=== PATIENT | female | born 1990 | race Caucasian/White ===

== ENCOUNTER → 2017-05-26 13:45 | Observation (INO) ==
--- NOTE | 2017-05-26 12:23 | OB/GYN Progress Note ---
Date of Encounter: 05/26/17 Time of Encounter: 12:20 - Assessment and Plan (1) Irregular uterine contractions Current Visit: Yes Status: Acute Plans: - reactive NST - irregular contractions - serial cervical exams unchanged - Pt safe for discharge home, with labor precautions, when to return to triage or call provider. Pt verbalizes understanding. (2) 39 weeks gestation of Current Visit: Yes Status: Acute Subjective - Subjective Principal diagnosis: contractions Interval history: Marielena is a 26 y/o female at 39+2 weeks presented to L&D for cramping with concern for contractions about every 10 minutes. Patient admits to pink discharge but denies vaginal bleeding. Reports active movement. Denies DAY , N/V, dysuria, fevers, chills. is complicated by MTHFR and is on aspirin. Patient follows with the midwives. Antepartum ROS: movement normal, contractions, no loss of fluid, no vaginal bleeding Objective - Exam FHR: category 1 FHR comments: FHR baseline= 135, accelerations present. Auscultation: bilateral: normal Abdomen: Present: normal appearance, soft Uterus: Present: normal Cervical dilation: 3-4cm
[2017-05-26 12:52] LABS: Bilirubin,Urine Negative (Negative); Blood,Urine Negative (Negative); Clarity,Urine Clear (Clear); Color,Urine Yellow (Yellow); Glucose,Urine (UA) Normal (Normal); Ketones,Urine Negative (Negative); Leukocyte Esterase,Urine Negative (Negative); Nitrite,Urine Negative (Negative); PH,Urine 7.5 pH Units (5.0-8.0); Protein,Urine Negative (Neg-Trace); Specific Gravity,Urine 1.013 (1.010-1.025); Urobilinogen,Urine Normal (Normal)
[2017-05-26 13:04] LABS: Amphetamine Screen,Urine Negative ng/mL (Cutoff=1000); Barbiturate Screen,Urine Negative ng/mL (Cutoff=200); Benzodiazepines Screen,Urine Negative ng/mL (Cutoff=200); Cannabinoid Screen,Urine Negative ng/mL (Cutoff = 50); Cocaine Screen,Urine Negative ng/mL (Cutoff= 300); Opiate Screen,Urine Negative ng/mL (Cutoff=300); Phencyclidine Screen,Urine Negative ng/mL (Cutoff=25)
== END | disposition home or self-care (01) ==
LOC: 1NENULAB
PROVIDERS: ADMIT Advanced Practice Midwife; ATTEND Advanced Practice Midwife

== ENCOUNTER 2017-05-27 03:48 | Inpatient (IN) ==
[~2017-05-27 03:48] MED LIST: *HR* Nalbuphine 20 MG/ML AMPUL IVP PRN; Famotidine 20 MG/2 ML VIAL IVP PRN; Naloxone 0.4 MG/ML INJ IVP PRN; Ondansetron 4 MG/2 ML VIAL IVP PRN
[2017-05-27] MEDS ORDERED: Ringers Solution, Lactated 1,000 ML IVC SCH (04:00)
--- NOTE | 2017-05-27 04:19 | OB/GYN History & Physical ---
Date of Encounter: 05/27/17 Time of Encounter: 04:07 Assessment and Plan (1) MTHFR deficiency complicating Current visit: Yes Status: Acute Qualifiers: Trimester: third trimester Qualified Code(s): O99.283 - Endocrine, nutritional and metabolic diseases complicating , third trimester; E72.12 - Methylenetetrahydrofolate reductase deficiency; E72.12 - Methylenetetrahydrofolate reductase deficiency; E72.12 - Methylenetetrahydrofolate reductase deficiency; E72.12 - Methylenetetrahydrofolate reductase deficiency (2) Uterine contractions Current visit: Yes Status: Acute IUP at 39+3 weeks GA Active labor GBS negative intact membranes Fetus Category I MTHFR gene mutation - on ASA Plan: Admit to L&D IV bolus then OK for saline lock Routine labs VS per standard Nubain or epidural as needed for pain relief 1000ml LR bolus Anesthesia consult PRN for epidural Anticipate POC per consult with Dr. Banda (3) 39 weeks gestation of Current visit: Yes Status: Acute History of Present Illness Chief complaint: Contractions HPI: Ms. Sands is a 26 year old at 39+3 weeks gestation by LMP. EDB 05/31/17. She returns to L&D because contractions have gotten closer together and are more intense. Her reports contractions every 5 minutes for 2 hours prior to arrival. Her has been complicated by a history of MTHFR for which she has been taking 81mg ASA daily. PMH: MTHFR + PSH: denies Allergies to PCN Currently taking ASA daily along with PNV daily labs: A+ Hep B negative HIV negative Rubella immune Varicella immune Treponema negative GBS negative Past Med Surg Social Fam HX - Past Medical History Medical history: no medical history Psychiatric history: no psych history - Past Surgical History Surgical History: no surgical history - Social History Smoking Status: Never smoker Alcohol use: none Drug use: none - Family History Father Living Status: Still Living Hx Family Endocrine Disorder: Yes (diabetes) Obstetrical History - Pregnancies : 3 Para: 0 Term: 0 : 0 Ab's: 2 Livin Medications and Allergies Aspirin [Lo-Dose Aspirin EC] 81 mg PO DAILY 05/26/17 [History] Vit Calc,Iron,Folic [ Vitamins] 1 each PO DAILY 05/26/17 [ History] 3 Allergy/AdvReac Type Severity Reaction Status Date / Time Penicillins [PCN] Allergy Rash Verified 05/27/17 03:37 Review of System OB All systems PM: reviewed and no additional remarkable complaints except as stated Exam - Constitutional Constitutional: well developed, well nourished, average body habitus, moderate distress - HEENT HEENT: PERRL, Normocephaly, Mucus Membranes Moist - Neck Neck exam: full ROM, supple, trachea midline - Lungs Respiratory exam: CTAB - Cardiovascular Cardiovascular exam: RRR, +S1, +S2 - Breasts Breast: bilateral: normal - Abdomen Abdomen: Present: gravid, non tender - Extremities Extremities exam: warm, radial pulses palpable and symmetrical Deep Tendon Reflex Grade: 2+ Normal - Cervix Dilation: 6 Effacement: 100 Station: 0 - Uterus Uterus exam: Present: normal size, normal contour Results All other labs normal. - VTE Reasons for not Prescribing Prophylaxis: Treatment not Indicated - Low risk for VTE
[2017-05-27 04:31] LABS: Amphetamine Screen,Urine Negative ng/mL (Cutoff=1000); Barbiturate Screen,Urine Negative ng/mL (Cutoff=200); Benzodiazepines Screen,Urine Negative ng/mL (Cutoff=200); Cannabinoid Screen,Urine Negative ng/mL (Cutoff = 50); Cocaine Screen,Urine Negative ng/mL (Cutoff= 300); Opiate Screen,Urine Negative ng/mL (Cutoff=300); Phencyclidine Screen,Urine Negative ng/mL (Cutoff=25)
[2017-05-27 04:47] LABS: Basophils % 0.3 %; Eosinophils # 0.1 K/mcL (0.0-0.6); Eosinophils % 0.8 %; Hematocrit 36.4 % (35.3-44.9); Hemoglobin 12.1 g/dL (11.5-15.4); Immature Granulocytes % 0.3 % (0-4); Immature Platelets 7.7 % (1.1-6.1); Lymphocytes # 1.7 K/mcL (0.6-4.6); Lymphocytes % 13.4 %; Mean Corpuscular HGB Conc 33.2 g/dL (31.6-35.5); Mean Corpuscular Hemoglobin 30.2 pg (28.0-33.3); Mean Corpuscular Volume 90.8 fL (83.0-100.0); Mean Platelet Volume 11.4 fL (9.4-12.4); Monocytes # 1.2 K/mcL (0.0-1.3); Neutrophils # 9.8 K/mcL (1.6-8.9); Platelet Count 224 K/mcL (140-400); Red Blood Count 4.01 M/mcL (3.82-4.97); Segmented Neutrophils % 76.2 %
--- NOTE | 2017-05-27 06:07 | OB Labor Progress Note ---
Date of Encounter: 05/27/17 Time of Encounter: 06:05 Labor Progress Note - Subjective Subjective: Pt reports increasing pain and pressure with contractions. Coping well with at bedside. Declines pain intervention at this time. - Cervix Cervix: 6/100/0 - Heart Tones Heart Tones: Baseline 130's Moderate variability Accelerations present Decelerations absent Category I tracing - [place]: ctx every 1-2 minutes and palpating firm - Plan Plan: Assessment: 26 yo IUP at 39 weeks + 3 days Active labor GBS negative Fetus category I Plan: Continue expectant management Anticipate vaginal delivery POC per consult with Dr. Banda.
[2017-05-27] MEDS ORDERED: miSOPROStol 100 MCG TABLET PO ONE (07:35)
[2017-05-27] MEDS ORDERED: *HR* FentaNYL (PF) 100 MCG/2 ML VIAL EP ONE (09:23)
[2017-05-27] MEDS ORDERED: *HR* Ropivacaine/PF 0.2% 20 ML VIAL EP ONE (09:23)
[2017-05-27] MEDS ORDERED: *HR* ROPIVACAINE 1% PF 100 MG/10 ML VIAL ONE (09:29)
[2017-05-27] MEDS ORDERED: Epidural Premix (fent/bupiv) 110 ML EP SCH (09:30)
[2017-05-27] MEDS ORDERED: *HR* FentaNYL (PF) 100 MCG/2 ML VIAL ONE (09:30)
[2017-05-27] MEDS ORDERED: Epidural Premix (fent/bupiv) 110 ML EP ONE (09:30)
--- NOTE | 2017-05-27 10:01 | Anesthesia Evaluation PreOp ---
Date of Encounter: 05/27/17 Time of Encounter: 08:00 - Past History Planned Operation: MILES Cardiac History: Denies any Significant Hx Pulmonary History: Denies Any Significant HX TOMBSTONE ERECTOR History: Denies Any Significant HX Other Medical History: GERD, Other (MTHFR) Anesthesia History: No Prior Anesthetic Complications : Yes Test: Positive Alcohol Use: none Drug use: none Medications and Allergies Aspirin [Lo-Dose Aspirin EC] 81 mg PO DAILY 05/26/17 [History] Vit Calc,Iron,Folic [ Vitamins] 1 each PO DAILY 05/26/17 [ History] 3 Allergy/AdvReac Type Severity Reaction Status Date / Time Penicillins [PCN] Allergy Rash Verified 05/27/17 03:37 - Meds/Allergy Pre-op Review Medications Reviewed: Yes Allergies Reviewed: Yes Beta Blockers on Current Med List: No Anesthesia Results - Labs 05/27/17 04:40 Anesthesia Exam 112/78 80 16 fht 133 Height: 5'4" Weight: 81 NPO (# of Hours): 3 Pain Scale: 8 Pain Scale Used: Numeric (1 - 10) - HEENT Pupil (Motor): Pupils equal Mallampati: II Teeth: Normal Oral Opening: Greater than 3 - TOMBSTONE ERECTOR LOC: Oriented TOMBSTONE ERECTOR Motor: Normal RUE, Normal LUE, Normal RLE, Normal LLE, Normal Face TOMBSTONE ERECTOR Sensory: Normal: RUE, LUE, RLE, LLE, Face - Cardiac Rhythm: Regular Murmur: None - Pulmonary Breath Sounds: bilateral Clear Respiratory Effort: Symmetrical Anesthesia Assess/Plan ASA Score: 2 Modified Fiona Scale for Level of Consciousness: Cooperative, oriented, and tranquil Anesthetic Plan: Regional Autologous Blood: No Monitoring Plan: Standard Monitors Recovery Plan: Other (risks discussed, questions answered, consented)
--- NOTE | 2017-05-27 10:04 | Anesthesia Procedures ---
Date of Encounter: 05/27/17 Time of Encounter: 10:02 Procedures: Anesthesia - Epidural/Spinal Patient ID/Chart reviewed: Yes Patient examined: Yes OB Eval: Gestational age: 39 OB Eval: : 3 OB Eval: Hx Para: 0 OB Eval: Dilated at (cm): 7 OB Eval: Contractions: Non-stressed pattern Consent Obtained: Yes Supplemental Oxygen: None/Room Air Site Prep: Aseptic Technique, Sterile prep and drape, 0.5% Chlorhexidine/Alcohol Patient position: left lateral decubitus Local Anesthetic: Lidocaine 1% Amount of Local Anesthetic used: 3 Touhy Needle Gauge: 18 Touhy Needle Depth (cm): 7 Catheter Depth at Skin (cm): 15 Test Dose Result: Negative Loading Dose: Fentanyl (mcg): 100 Loading Dose: Other: rop 0.2% 10 Loading Dose Administered: Thru Touhy Needle Infusion Med: 0.125% Bupivacaine w/ 2 mcg/ml Fentanyl Infusion Rate (mls/hr): 15 (pcea 5cc q 30") Catheter Secured in Place: Tegaderm Interspace Used: L2-L3 Loss of Resistance (MABLE): Yes Blood: No CSF: No Paresthesia: No Procedure: aseptic, tolerated well, VSS, effective Vitals + FHT's: 112/67 68 16 fht 138
--- NOTE | 2017-05-27 12:55 | OB Labor Progress Note ---
Date of Encounter: 05/27/17 Time of Encounter: 12:53 Labor Progress Note - Subjective Subjective: Patient resting in bed sleeping at intervals with epidural in place. - Cervix Cervix: 8/100/0 - Heart Tones Heart Tones: 135 bpm, moderate variability, +15x15 accels, no decels. - [employer]: Irregular. Difficult to determine due to patient positioning. - Interventions Interventions: AROM for moderate amount of clear fluid. SVE - Plan Plan: Continue labor management Anticipate
[2017-05-27] MEDS ORDERED: Oxytocin 20 units/ LR 1000 mL 20 UNIT/1,000 ML BAG IVC SCH ×2 (15:30→18:39)
[2017-05-27] MEDS ORDERED: miSOPROStol 100 MCG TABLET PO SCH (17:25)
--- NOTE | 2017-05-27 18:11 | OB/GYN Procedure Note ---
Delivery - Delivery Date: 05/27/17 Provider: Minoo Guaman (Marysol Gilliam [facility]) Intrapartum events: none Delivery induction: none Delivery augmentation: pitocin Delivery monitor: external FHT, external uterine Anesthesia: epidural Estimated Blood Loss: 400 - (s) A Infant Delivery Date: 05/27/17 Delivery Time: 16:48 Presentation: vertex Position: TIFFANY Route of delivery: Gender: Male Viability: Viable Pounds: 8 Ounces: 8 Weight Gram: 3.855 kg at 1 minute: 9 at 5 mins: 9 Shoulder Dystocia: not encountered Specimens collected: cord blood Placenta: spontaneous Cord: nuchal cord, 3 umbilical vessels, delivered through nuchal - Repair Episiotomy: none Laceration Description: Perineal - 2nd Degree - Complications Delivery complications: other (Prolonged 3rd stage) Delivery comments: Under maternal effort, of viable male weighing 8#8oz. over 2nd degree perineal laceration, repaired with 3-0 Vicryl. to maternal abdomen. Cord clamped and cut after pulsation ceased. Prolonged 3rd stage with placenta delivery after 54 minutes. Cytotec 400 mcg given po at 1724 with placenta delivered spontaneously, intact approximately 20 minutes later. EBL 400 mL. Mother and infant stable in kangaroo care for 2 hour recovery. - Disposition Mom disposition: stable in LDR disposition: stable in LDR
[2017-05-27] MEDS ORDERED: Lanolin 7 G OINT...G. TP PRN (18:39)
[2017-05-27] MEDS ORDERED: Ibuprofen 600 MG TABLET PO PRN (18:39)
[2017-05-27] MEDS ORDERED: Acetaminophen 325 MG TABLET PO PRN (18:39)
[2017-05-27] MEDS ORDERED: *HR* HYDROcodone/Acet 5/325 mg TABLET PO PRN (18:39)
[2017-05-27] MEDS ORDERED: Benzocaine/Menthol 56 GM AEROSOL SPRAY TP PRN (18:39)
[2017-05-27] MEDS ORDERED: Ondansetron 4 MG/2 ML VIAL IVP ONE (18:49)
[2017-05-28 05:18] LABS: Basophils % 0.3 %; Eosinophils # 0.1 K/mcL (0.0-0.6); Hematocrit 30.9 % (35.3-44.9); Immature Granulocytes % 0.3 % (0-4); Lymphocytes # 1.6 K/mcL (0.6-4.6); Lymphocytes % 13.6 %; Mean Corpuscular HGB Conc 33.3 g/dL (31.6-35.5); Mean Corpuscular Hemoglobin 30.3 pg (28.0-33.3); Mean Corpuscular Volume 90.9 fL (83.0-100.0); Mean Platelet Volume 11.2 fL (9.4-12.4); Monocytes # 1.5 K/mcL (0.0-1.3); Monocytes % 12.6 %; Neutrophils # 8.4 K/mcL (1.6-8.9); Platelet Count 175 K/mcL (140-400); Red Cell Distribution Width 14.3 % (11.5-14.5); Segmented Neutrophils % 72.2 %
[2017-05-28 05:19] LABS: Hemoglobin 10.3 g/dL (11.5-15.4)
--- NOTE | 2017-05-28 08:12 | Discharge Summary ---
Date of Encounter: 05/28/17 Time of Encounter: 08:10 - Discharge Diagnosis (1) Vaginal delivery Priority: Primary Status: Acute Comments: Meeting milestones. Pain well controlled. [place] light. No complaints. Passing flatus. Voiding well with no issues. . D/C home today. Follow up in 4-6 weeks. (2) Mother currently breast-feeding Priority: Secondary Status: Acute Comments: Patient with no complications or concerns at this time. We will provide patient with breast pump prescription for at home as needed. - Discharge Medications Prescriptions: Ibuprofen 600 mg PO Q6HR PRN #30 tablet PRN Reason: Pain Breast Pump [BREAST PUMP] 1 each .ROUTE AD #1 each Docusate [Colace] 100 mg PO DAILY #20 capsule Home Medications: Aspirin [Lo-Dose Aspirin EC] 81 mg PO DAILY 05/26/17 [History] Vit Calc,Iron,Folic [ Vitamins] 1 each PO DAILY 05/26/17 [ History] Breast Pump [BREAST PUMP] 1 each .ROUTE AD #1 each 05/28/17 [Rx] Docusate [Colace] 100 mg PO DAILY #20 capsule 05/28/17 [Rx] Ibuprofen 600 mg PO Q6HR PRN #30 tablet 05/28/17 [Rx] Allergies/Adverse Reactions: 3 Allergy/AdvReac Type Severity Reaction Status Date / Time Penicillins [PCN] Allergy Rash Verified 05/27/17 03:37 Data Procedures and tests throughout hospitalization: Laboratory Tests 05/27/17 05/27/17 05/27/17 04:05 04:17 04:40 WBC 12.9 H RBC 4.01 Hgb 12.1 Hct 36.4 MCV 90.8 MCH 30.2 MCHC 33.2 RDW 14.0 Plt Count 224 MPV 11.4 Immature Gran % 0.3 Seg Neutrophils % 76.2 Lymphocytes % 13.4 Monocytes % 9.0 Eosinophils % 0.8 Basophils % 0.3 Neutrophils # 9.8 H Lymphocytes # 1.7 Monocytes # 1.2 Eosinophils # 0.1 Basophils # 0.0 Immature Plt Fraction 7.7 H Urine Opiates Screen Negative Ur Barbiturates Screen Negative Ur Phencyclidine Scrn Negative Ur Amphetamines Screen Negative U Benzodiazepines Scrn Negative Urine Cocaine Screen Negative U Marijuana (THC) Screen Negative Specimen Rejected Clotted 05/28/17 05:01 WBC 11.6 H RBC 3.40 L Hgb 10.3 L D Hct 30.9 L MCV 90.9 MCH 30.3 MCHC 33.3 RDW 14.3 Plt Count 175 MPV 11.2 Immature Gran % 0.3 Seg Neutrophils % 72.2 Lymphocytes % 13.6 Monocytes % 12.6 Eosinophils % 1.0 Basophils % 0.3 Neutrophils # 8.4 Lymphocytes # 1.6 Monocytes # 1.5 H Eosinophils # 0.1 Basophils # 0.0 Immature Plt Fraction Urine Opiates Screen Ur Barbiturates Screen Ur Phencyclidine Scrn Ur Amphetamines Screen U Benzodiazepines Scrn Urine Cocaine Screen U Marijuana (THC) Screen Specimen Rejected Labs on day of discharge: Labs from last 24 hours 05/28/17 05:01 WBC 11.6 H RBC 3.40 L Hgb 10.3 L D Hct 30.9 L MCV 90.9 MCH 30.3 MCHC 33.3 RDW 14.3 Plt Count 175 MPV 11.2 Immature Gran % 0.3 Seg Neutrophils % 72.2 Lymphocytes % 13.6 Monocytes % 12.6 Eosinophils % 1.0 Basophils % 0.3 Neutrophils # 8.4 Lymphocytes # 1.6 Monocytes # 1.5 H Eosinophils # 0.1 Basophils # 0.0 Date of admission: 05/27/17 03:48 Primary care physician: Clari Thornton, Consults: 05/27/17 18:39 Consult to Uniformer [CONS] Routine Comment: Vaginal delivery, consult needed Anticipated date of discharge: 05/28/17 - Patient Status Disposition: Home, Self-Care Condition: Good Functional capacity at discharge: independent ambulation Overall status at discharge: patient is progressing back to baseline - Discharge Instructions Follow Up With: Clari Thornton, SANDHYA [Primary Care Provider] - Minoo Guaman CNM [Non-Partnered Physician] - - Diet and Activity Activity: increase activity as tolerated Diet: regular diet Hospital Course Reason for admission: active labor Delivery: Episiotomy: none Laceration: 1st degree Other procedures: none complications: none Discharge diagnosis: IUP at term delivered [place] baby: male Hospital course: - Delivery Date: 05/27/17 Provider: Minoo Guaman [facility]) Intrapartum events: none Delivery induction: none Delivery augmentation: pitocin Delivery monitor: external FHT, external uterine Anesthesia: epidural Estimated Blood Loss: 400 - (s) A Infant Delivery Date: 05/27/17 Infant Delivery Time: 16:48 Presentation: vertex Position: TIFFANY Route of delivery: Gender: Male Viability: Viable Pounds: 8 Ounces: 8 Weight Gram: 3.855 kg at 1 minute: 9 at 5 mins: 9 Shoulder Dystocia: not encountered Specimens collected: cord blood Placenta: spontaneous Cord: nuchal cord, 3 umbilical vessels, delivered through nuchal - Repair Episiotomy: none Laceration Description: Perineal - 2nd Degree - Complications Delivery complications: other (Prolonged 3rd stage) Delivery comments: Under maternal effort, of viable male weighing 8#8oz. over 2nd degree perineal laceration, repaired with 3-0 Vicryl. Infant to maternal abdomen. Cord clamped and cut after pulsation ceased. Prolonged 3rd stage with placenta delivery after 54 minutes. Cytotec 400 mcg given po at 1724 with placenta delivered spontaneously, intact approximately 20 minutes later. EBL 400 mL. Mother and infant stable in kangaroo care for 2 hour recovery. Time Attestation: Total time spent providing and/or coordinating discharge services: Time Spent: Less than 30 minutes Exam - Constitutional Vitals: Temp Pulse Resp BP Pulse Ox 97.7 F 86 16 106/70 97 05/28/17 08:03 05/28/17 08:03 05/28/17 08:03 05/28/17 08:03 05/28/17 03:34 General appearance IM: A&O X 3, pleasant, no acute distress - Respiratory Respiratory exam: Present: CTAB - Cardiovascular Cardiovascular exam IM: Present: RRR - GI/Abdominal GI/Abdominal exam IM: normal bowel sounds, soft, no peritoneal signs - Uterine Tone: Firm Uterus Position: 2 Fingers Below Umbilicus, Midline - Extremities Exam Extremities exam IM: Present: normal inspection - Neurological Exam Neurological exam: alert, normal gait, oriented X3 - Attending Attestation I examined this patient and my medical decision-making was reviewed with the Resident Physician. I agree with the documented findings, disposition and treatment plan as described. Mamta Jensen CNM
[2017-05-28] MEDS ORDERED: Prenatal Vit/FA 1 EACH TABLET PO SCH (09:00)
[2017-05-28 16:39] VITALS: BP 100/65
== END 2017-05-28 19:30 | disposition home or self-care (01) | DRG 775 ==
LOC: 1NENULAB → 1NENUOBS 20:58
PROVIDERS: ADMIT Advanced Practice Midwife; ATTEND Advanced Practice Midwife

== ENCOUNTER 2019-05-09 08:00 | Inpatient (IN) ==
[2019-05-09] MEDS ORDERED: *HR* Nalbuphine 10 MG/ML AMPUL IVP PRN (09:11)
[2019-05-09] MEDS ORDERED: Naloxone 0.4 MG/ML INJ IVP PRN (09:11)
[2019-05-09] MEDS ORDERED: Metoclopramide 10 MG/2 ML VIAL IVP PRN (09:11)
[2019-05-09] MEDS ORDERED: Famotidine 20 MG/2 ML VIAL IVP PRN (09:11)
[2019-05-09] MEDS ORDERED: Ondansetron 4 MG/2 ML VIAL IVP PRN (09:12)
[2019-05-09] MEDS ORDERED: Azithromycin 500 MG in 0.9 % Sodium Chloride 250 ML IVPB PRN (09:12)
[2019-05-09] MEDS ORDERED: Lidocaine 1% 20 ML MDV INFILT PRN (09:12)
[2019-05-09] MEDS ORDERED: Oxytocin 20 units/ LR 1000 mL 20 UNIT/1,000 ML BAG IVC SCH ×2 (09:15→22:04)
[2019-05-09 09:41] LABS: Amphetamine Screen,Urine Negative ng/mL (Cutoff=1000); Barbiturate Screen,Urine Negative ng/mL (Cutoff=200); Benzodiazepines Screen,Urine Negative ng/mL (Cutoff=200); Cannabinoid Screen,Urine Negative ng/mL (Cutoff = 50); Cocaine Screen,Urine Negative ng/mL (Cutoff= 300); Opiate Screen,Urine Negative ng/mL (Cutoff=300); Phencyclidine Screen,Urine Negative ng/mL (Cutoff=25)
[2019-05-09 09:45] LABS: Basophils # 0.1 K/mcL (0.0-0.2); Basophils % 0.6 %; Eosinophils # 0.3 K/mcL (0.0-0.6); Eosinophils % 3.2 %; Hematocrit 30.1 % (35.3-44.9); Hemoglobin 9.8 g/dL (11.5-15.4); Immature Granulocytes % 0.6 % (0-4); Lymphocytes # 1.6 K/mcL (0.6-4.6); Lymphocytes % 15.2 %; Mean Corpuscular HGB Conc 32.6 g/dL (31.6-35.5); Mean Corpuscular Hemoglobin 25.7 pg (28.0-33.3); Mean Corpuscular Volume 78.8 fL (83.0-100.0); Mean Platelet Volume 10.9 fL (9.4-12.4); Monocytes % 9.6 %; Neutrophils # 7.6 K/mcL (1.6-8.9); Platelet Count 265 K/mcL (140-400); Red Blood Count 3.82 M/mcL (3.82-4.97); Red Cell Distribution Width 15.5 % (11.5-14.5); Segmented Neutrophils % 70.8 %; White Blood Count 10.7 K/mcL (4.3-11.1)
[2019-05-09] MEDS ORDERED: Ringers Solution, Lactated 1,000 ML ONE (09:52)
[2019-05-09] MEDS: Ringers Solution, Lactated 1,000 ML IVC SCH ×2 (09:56→18:27)
[2019-05-09] MEDS ORDERED: Bupivacaine/EPI 1:200k 0.25%PF 10 ML VIAL INFILT ONE (16:38)
[2019-05-09] MEDS ORDERED: *HR* FentaNYL (PF) 100 MCG/2 ML VIAL ONE (16:38)
[2019-05-09] MEDS ORDERED: Epidural Premix (fent/bupiv) 110 ML EP SCH (16:45)
[2019-05-09] MEDS ORDERED: *HR* HYDROcodone/Acet 5/325 mg TABLET PO PRN (22:04)
[2019-05-09] MEDS ORDERED: Acetaminophen 325 MG TABLET PO PRN (22:04)
[2019-05-09] MEDS ORDERED: Benzocaine/Menthol 56 GM AEROSOL SPRAY TP PRN (22:04)
[2019-05-09] MEDS ORDERED: Lanolin 7 G OINT...G. TP PRN (22:04)
[2019-05-09] MEDS ORDERED: Ibuprofen 600 MG TABLET PO PRN (22:04)
[2019-05-10 07:59] VITALS: BP 113/72
[2019-05-10] MEDS ORDERED: Prenatal Vit/FA 1 EACH TABLET PO SCH (09:00)
== END 2019-05-10 18:22 | disposition home or self-care (01) | DRG 806 ==
LOC: 1NENULAB 08:10 → 1NENUOBS 21:55
PROVIDERS: ADMIT Advanced Practice Midwife; ATTEND Advanced Practice Midwife